=== PATIENT | female | born 1955 | race Caucasian/White ===

== ENCOUNTER 2023-04-25 12:45 | Outpatient (OUT) | payer MEDICARE, OTHER, SELFPAY ==
--- NOTE | 2023-04-25 12:49 | MM_ITS ---
Patient: PAULIE SERRANO Exam Date: 04/25/2023 : 1955 Gender:F Ordering : Non-Staff Physician Admission #: [id number] Family : NANCY ALEXANDER Order #: [id number] CLICK HERE TO VIEW EXAM RADIOLOGY REPORT PROCEDURE: MM TOMOSYNTHESIS SCREENING BI COMPARISON: MG MAMM SCREEN SAWYER W CAD, 04/30/2019. MG MAMM SCREEN SAWYER W CAD, 02/15/2018. INDICATIONS: Screening Calculator Name NCI Breast Cancer Risk Assessment Tool 5 Year Breast Cancer Risk Not Reported. Lifetime Breast Cancer Risk Not Reported. Personal Breast Cancer No Personal Ovarian Cancer No Treatments None Family Cancers None LOCATION: [facility] BREAST COMPOSITION: Scattered areas fibroglandular density. FINDINGS: DIAGNOSTIC CATEGORY 2--BENIGN FINDING: RIGHT BREAST: No significant suspicious finding. Scattered benign-appearing nodules are present. No significant change has occurred. LEFT BREAST: No significant suspicious finding. Scattered benign-appearing nodules are present. No significant change has occurred. RECOMMENDATIONS: ROUTINE MAMMOGRAM AND CLINICAL EVALUATION IN 12 MONTHS. PLEASE NOTE: A NORMAL MAMMOGRAM DOES NOT EXCLUDE THE POSSIBILITY OF BREAST CANCER. A CLINICALLY SUSPICIOUS PALPABLE LUMP SHOULD BE BIOPSIED. Dictated by: Tristian Geiger M.D. on 04/25/2023 at 14:38 Approved by: Tristian Geiger M.D. on 04/25/2023 at 14:58
== END 2023-04-25 12:46 | disposition home or self-care (01) ==
LOC: MAMMO 12:45
DX: Z12.31 Encounter for screening mammogram for malignant neoplasm of breast (principal)
CPT/HCPCS: 77063; 77067

== ENCOUNTER 2023-08-09 11:06 | Outpatient (OUT) | payer MEDICARE, OTHER, SELFPAY ==
[2023-08-09 12:23] LABS: Creatinine Urine Random 172.36 mg/dL (20.00-300.00); Microalbum Creatinine Ratio Ur 20.8 mg/g (0.0-29.9); Microalbumin Urine Random 3.6 mg/dL (<=30.0)
[2023-08-09 12:34] LABS: Albumin Level 3.9 g/dL (3.4-5.0); Anion Gap 9.8; BUN Creatinine Ratio 30.2; Calcium 9.5 mg/dL (8.5-10.1); Carbon Dioxide 30.8 mmol/L (21.0-32.0); Chloride 105 mmol/L (98-107); Chol HDL Ratio 2.5; Cholesterol 180 mg/dL (<=200); Estimated GFR (African America >60 (>=60); Estimated GFR (Non-African Ame >60 (>=60); Free T3 2.28 pg/mL (2.18-3.98); Glucose 118 mg/dL (74-106); HDL Cholesterol 72 mg/dL (40-60); Phosphorus 3.9 mg/dL (2.6-4.7); Potassium 3.6 mmol/L (3.5-5.1); Sodium 142 mmol/L (136-145); Thyroid Stimulating Hormone 0.602 uIU/mL (0.358-3.740); Triglycerides 89 mg/dL (<=150); VLDL CHOLESTEROL 17.8 mg/dL
[2023-08-09 13:00] LABS: Free T4 1.39 ng/dL (0.76-1.46)
[2023-08-10 10:09] LABS: C-Peptide, Serum 2.6 ng/mL (1.1-4.4)
[2023-08-10 15:08] LABS: Thyroglobulin Antibody <1.0 IU/mL (0.0-0.9)
[2023-08-16 12:09] LABS: Thyroglobulin (TG-RIA) <2.0 ng/mL (.)
== END 2023-08-09 11:07 | disposition home or self-care (01) ==
LOC: LAB 11:09
PROVIDERS: Visit Provider Internal Medicine
DX: E11.65 Type 2 diabetes mellitus with hyperglycemia (principal); C73 Malignant neoplasm of thyroid gland; E55.9 Vitamin D deficiency, unspecified; E03.9 Hypothyroidism, unspecified
CPT/HCPCS: 36415; 80061; 80069; 82043; 82306; 82570; 84432; 84439; 84443; 84481; 84681; 86800